=== PATIENT | female | born 1950 | race African-American/Black ===

== ENCOUNTER → 2024-07-21 | Outpatient (CLI) | payer MEDICARE ==
[~2024-07-21] MED LIST: ALBU8.5H8 IH; ALEN70TA80 PO; ATOR-2 PO; CARB100T61 PO; CHOL500050 PO; CILO100T3 PO; CLON1TAB12 PO; ESOM40CA66 PO; EZET10TA81 PO; FLUT1DIS5 IH; GABA-1405 PO; METO-408 PO; PREG50 PO; TYL3 PO; UMEC62.5 IH; ZIPR60CA6 PO; ZOLP-684 PO
[2024-07-21] MEDS: REGADENOSON 0.4 MG/5 ML PF SYG IVP ONE (15:32)
== END | disposition home or self-care (01) ==
LOC: SHCH 08:04
PROVIDERS: ATTEND Internal Medicine Cardiovascular Disease
DX: R06.09 Other forms of dyspnea (principal)
CPT/HCPCS: 78452; 93017; J2785; A9500 ×2